=== PATIENT | female | born 1975 | race Caucasian/White ===

== ENCOUNTER 2016-09-12 17:22 | Emergency (ER) | payer SELFPAY ==
[~2016-09-12] VITALS: Ht 152.4 cm; Wt 63.5 kg
[2016-09-12 17:26] VITALS: BP 114/86
--- NOTE | 2016-09-12 17:30 | NUR ---
Patient to bed 7. RN evaluating patient at bedside.
--- NOTE | 2016-09-12 17:44 | NUR ---
PT PRESENTS TO ER W/C/O SOB SINCE THIS AM. PT STATES SHE HAS SLIGHT CP DURING INSPIRATION THAT RADIATES TO LEFT ARM;DIMINISHED BREATH SOUNDS UPON AUSCULTATION;PT DENIES ANY OTHER MEDICAL HX.PT AAOX4;W/ NASAL O2 AT 2 LPM;DENIES F/N/V/DIZZINESS/BLURRY OF VISSION;HOB ELEVATED;ALL MONITORS IN PLACED;NEEDS ATTENDED;SAFETY PREACUTION INSTITUTED; MADE AWARE OF PT'S CONDITION.
[2016-09-12] MEDS ORDERED: LORazepam 2 MG/ML VIAL IM/IVP ONE (18:20)
--- NOTE | 2016-09-12 18:20 | NUR ---
Dr. Long evaluating patient at bedside.
--- NOTE | 2016-09-12 18:38 | NUR ---
PT WENT TO XRAY ACCOMPANIED BY TECH
--- NOTE | 2016-09-12 18:47 | NUR ---
Patient returned from XRAY. RN re-evaluating patient at bedside.
[2016-09-12] MEDS ORDERED: IBUPROFEN 800 MG TAB PO ONE (18:50)
--- NOTE | 2016-09-12 18:59 | NUR ---
PT VERBALIZES DECREASE OF PAIN LEVEL FROM 8/10 TO 3/10.NO ACUTE DISTRESS NOTED AT THIS TIME;WILL CONTINUE TO MONITOR PT.
--- NOTE | 2016-09-12 19:09 | NUR ---
Patient discharged with v/s stable. Written and verbal after care instructions given and explained. Patient alert, oriented and verbalized understanding of instructions. Ambulatory with steady gait. All questions addressed prior to discharge. ID band removed. Patient advised to follow up with PMD. Rx of XANAX AND TRAMADOL given. Patient educated on indication of medication including possible reaction and side effects. Opportunity to ask questions provided and answered.
[2016-09-12 19:13] VITALS: BP 108/64
== END 2016-09-12 19:09 | disposition home or self-care (01) ==
LOC: MED 17:22
DX: F41.9 Anxiety disorder, unspecified (principal); M25.512 Pain in left shoulder
CPT/HCPCS: 73030; 93005; 96372; 99284; J2060

== ENCOUNTER 2019-07-13 19:49 | Emergency (ER) | payer SELFPAY ==
[~2019-07-13] VITALS: Ht 160 cm; Wt 72.6 kg
[2019-07-13 19:50] VITALS: BP 112/62
--- NOTE | 2019-07-13 20:01 | NUR ---
PT AMBULATED TO CHD
--- NOTE | 2019-07-13 20:04 | NUR ---
INFLUENZA SWAB COLLECTED
[2019-07-13] MEDS ORDERED: ACETAMINOPHEN EXTRA STRENGTH 500 MG TAB PO ONE (20:05)
--- NOTE | 2019-07-13 20:05 | NUR ---
PT ASSESSMENT COMPLETE. PT SEATED UPRIGHT IN CHAIR. WILL CONTINUE TO MONITOR.
[2019-07-13 20:50] VITALS: BP 112/62
--- NOTE | 2019-07-13 20:51 | NUR ---
Patient discharged with v/s stable. Written and verbal after care instructions given and explained. Patient alert, oriented and verbalized understanding of instructions. Ambulatory with steady gait. All questions addressed prior to discharge. ID band removed. Patient advised to follow up with PMD. Rx of ACETAMINOPHEN, TESSALON PERLES, IBURPOFEN, PHENYEPHRINE HYDROCHLORIDE given. Patient educated on indication of medication including possible reaction and side effects. Opportunity to ask questions provided and answered.
== END 2019-07-13 20:51 | disposition home or self-care (01) ==
LOC: MED 19:49
DX: J06.9 Acute upper respiratory infection, unspecified (principal)
CPT/HCPCS: 87804; 99283

== ENCOUNTER 2021-09-13 23:17 | Emergency (ER) | payer SELFPAY ==
[~2021-09-13] VITALS: Ht 165.1 cm; Wt 70.3 kg
[2021-09-13 23:28] VITALS: BP 145/83
[2021-09-14] MEDS ORDERED: KETOROLAC 60 MG/2 ML VIAL IM ONE (00:30)
[2021-09-14] MEDS ORDERED: NAPR-54 PO (01:49)
[2021-09-14 01:55] VITALS: BP 111/75
== END 2021-09-14 01:36 | disposition home or self-care (01) ==
LOC: MED 23:17
DX: M94.0 Chondrocostal junction syndrome [Tietze] (principal); Z79.899 Other long term (current) drug therapy
CPT/HCPCS: 93005; 96372; 99283; J1885